=== PATIENT | female | born 1960 | race African-American/Black ===

== ENCOUNTER 2016-12-04 14:25 | Emergency (ER) | payer OTHER, MEDICAID ==
[2016-12-04 14:38] VITALS: BP 156/83; BMI 30.6
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
[2016-12-04] MEDS ORDERED: TORADOL 30 MG VIAL IVP ONE (15:29)
[2016-12-04] MEDS ORDERED: NS 1000 ML 1,000 ML IV ONE (15:30)
[2016-12-04] MEDS ORDERED: NS 1000 ML 1,000 ML ONE (15:34)
[2016-12-04] MEDS ORDERED: TORADOL 30 MG VIAL ONE (15:34)
[2016-12-04 16:07] LABS: HEMATOCRIT 34.5 % (36.0-47.0); LYMPHOCYTES # (AUTO) 0.5 X10^3/uL (1.3-2.9); LYMPHOCYTES % (AUTO) 12.1 % (21.0-51.0); MEAN CORPUSCULAR HEMOGLOBIN 24.5 pg (27.0-34.0); MEAN CORPUSCULAR HGB CONC 31.8 g/dL (33.0-35.0); MEAN CORPUSCULAR VOLUME 77.1 fL (80.0-100.0); MEAN PLATELET VOLUME 7.8 fL (7.4-11.0); MONOCYTES # (AUTO) 0.7 x10^3/uL (0.3-0.8); MONOCYTES % (AUTO) 15.5 % (0.0-13.0); NEUTROPHILS # (AUTO) 3.1 x10^3/uL (2.2-4.8); NEUTROPHILS % (AUTO) 71.4 % (42.0-75.0); PLATELET COUNT 240 X10^3/uL (150.0-450.0); RED BLOOD COUNT 4.47 X10^6/uL (3.5-5.4); RED CELL DISTRIBUTION WIDTH 13.8 % (11.6-16.5); WHITE BLOOD COUNT 4.3 X10^3/uL (3.6-10.0)
[2016-12-04 16:28] LABS: ALANINE AMINOTRANSFERASE 31 Units/L (12-78); ALBUMIN 3.4 g/dL (3.4-5.0); ALKALINE PHOSPHATASE 128 Units/L (46-116); ASPARTATE AMINO TRANSFERASE 31 Units/L (15-37); BLOOD UREA NITROGEN 13 mg/dL (7-18); CALCIUM 8.6 mg/dL (8.5-10.1); CHLORIDE 97 mmol/L (98-107); COR NA(FOR HYPERGLY) 139 mmol/L (136-145); CREATININE 1.16 mg/dL (0.55-1.02); GLUCOSE 223 mg/dL (65-99); SODIUM 136 mmol/L (136-145); TOTAL PROTEIN 7.9 g/dL (6.4-8.2); eGFR BLACK RACES > 60 (>60); eGFR NON BLACK RACES 52 (>60)
[2016-12-04 16:41] LABS: HYPOCHROMASIA SLIGHT; PLATELET MORPHOLOGY COMMENT NORMAL (NORMAL); POIKILOCYTOSIS SLIGHT
[2016-12-04] MEDS ORDERED: K-DUR TAB 20 MEQ PO ONE ×2 (17:09→17:17)
== END 2016-12-04 17:26 | disposition home or self-care (01) ==
LOC: ER 14:42
DX: J11.1 Influenza due to unidentified influenza virus with other respiratory manifestations (principal)
CPT/HCPCS: 36415; 80053; 85025; 87070; 87502; 87503; 87880; 96365; 96374; 99283; A4222; J1885

== ENCOUNTER 2017-02-24 17:05 | Emergency (ER) | payer OTHER, MEDICAID ==
[2017-02-24 17:10] VITALS: BP 142/77; BMI 29.2
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
[2017-02-24] MEDS ORDERED: TORADOL 60 MG VIAL IM ONE (18:27)
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
[2017-02-24] MEDS ORDERED: TORADOL 60 MG VIAL ONE (19:11)
== END 2017-02-24 19:41 | disposition home or self-care (01) ==
LOC: ER 17:14
DX: S83.92XA Sprain of unspecified site of left knee, initial encounter (principal); S93.402A Sprain of unspecified ligament of left ankle, initial encounter; S73.102A Unspecified sprain of left hip, initial encounter; V89.2XXA Person injured in unspecified motor-vehicle accident, traffic, initial encounter
CPT/HCPCS: 29530; 29540; 73501; 73564; 73610; 96372; 99283; J1885

== ENCOUNTER 2017-06-15 20:47 | Emergency (ER) | payer OTHER, MEDICAID ==
[2017-06-15 20:55] VITALS: BP 157/81; BMI 28.3
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
[2017-06-15] MEDS ORDERED: ZOFRAN INJ 4 MG VIAL IM ONE (22:36)
[2017-06-15] MEDS ORDERED: TORADOL 60 MG VIAL IM ONE (22:36)
[2017-06-15] MEDS ORDERED: ZOFRAN INJ 4 MG VIAL ONE (22:44)
[2017-06-15] MEDS ORDERED: TORADOL 60 MG VIAL ONE (22:44)
--- NOTE | 2017-06-15 23:02 | CT ---
EXAM: CT BRAIN WITHOUT CONTRAST INDICATION: Headache COMPARISION: No Priors TECHNIQUE: Routine axial CT of the brain was performed without intravenous contrast. FINDINGS: There is mild bilateral cortical atrophy. The ventricular system is not abnormally dilated. No intra or extra-axial mass or hemorrhage. The ferrer-white junction is preserved. There is no evidence of suba cute ischemic change. The basilar cisterns are clear. The skull is intact. The paranasal sinuses and mastoid air cells are clear. IMPRESSION: There is bilateral cortical atrophy as described above. No acute abnormality identified. Reported By:
== END 2017-06-15 23:31 | disposition home or self-care (01) ==
LOC: ER 20:47
DX: G44.201 Tension-type headache, unspecified, intractable (principal)
CPT/HCPCS: 70450; 96372; 99283; J1885; J2405